=== PATIENT | female | born 1975 | race Caucasian/White ===

== ENCOUNTER 2017-08-09 08:51 | Emergency (ER) | payer OTHER, BC ==
[~2017-08-09] VITALS: Ht 162.6 cm; Wt 90.9 kg
[~2017-08-09 08:51] MED LIST: NO HOME MEDICATIONS
[2017-08-09] MEDS ORDERED: TYLENOL PM EX-1 EACH (08:58)
[2017-08-09] MEDS ORDERED: MUCINEX 60600 MG/TA1 (08:59)
[2017-08-09 09:47] LABS: PH-URINE 5.5 (5.0 - 8.0); URINE APPEARANCE HAZY; URINE BILIRUBIN NEGATIVE (NEGATIVE); URINE BLOOD NEGATIVE (NEGATIVE); URINE COLOR YELLOW; URINE GLUCOSE NEGATIVE (NEGATIVE); URINE KETONE NEGATIVE (NEGATIVE); URINE LEUKOCYTE ESTERASE TRACE (NEGATIVE); URINE NITRATE NEGATIVE (NEGATIVE); URINE PROTEIN(semi-quant) NEGATIVE (NEGATIVE); URINE UROBILINOGEN NORMAL (NORMAL)
[2017-08-09] MEDS ORDERED: PERCOCET 325 MG1 TA2 PO (13:02)
[2017-08-09] MEDS ORDERED: SKELAXIN 800MG800 MG PO (13:02)
[2017-08-09 13:08] VITALS: BP 134/89
== END 2017-08-09 13:11 | disposition home or self-care (01) ==
LOC: ED 08:51
PROVIDERS: Physician Assistant
DX: S33.5XXA Sprain of ligaments of lumbar spine, initial encounter (principal); X50.0XXA Overexertion from strenuous movement or load, initial encounter; Z88.2 Allergy status to sulfonamides
CPT/HCPCS: J1885; J2360

== ENCOUNTER 2017-12-18 19:17 | Emergency (ER) | payer BC ==
[~2017-12-18 19:17] MED LIST changes: +MUCINEX 60600 MG/TA1; +PERCOCET 325 MG1 TA2 PO; +SKELAXIN 800MG800 MG PO; +TYLENOL PM EX-1 EACH
[2017-12-18 20:24] VITALS: BP 140/80
== END 2017-12-18 20:24 | disposition home or self-care (01) ==
LOC: ED 19:17
DX: S93.402A Sprain of unspecified ligament of left ankle, initial encounter (principal); X50.1XXA Overexertion from prolonged static or awkward postures, initial encounter; Y92.481 Parking lot as the place of occurrence of the external cause

== ENCOUNTER → 2018-10-16 | Outpatient (CLI) | payer BC | LOC: MAMMO 10-08 09:15 | DX: Z12.31 Encounter for screening mammogram for malignant neoplasm of breast (principal) ==

== ENCOUNTER → 2020-04-16 | Outpatient (CLI) | payer OTHER | LOC: RAD 15:28 | DX: M79.672 Pain in left foot (principal) ==

== ENCOUNTER → 2020-05-21 | Outpatient (CLI) | payer OTHER | LOC: RAD 16:39 | DX: M76.52 Patellar tendinitis, left knee (principal) ==

== ENCOUNTER → 2020-12-15 | Outpatient (CLI) | payer OTHER, BC | LOC: MAMMO 09:02 | DX: Z12.31 Encounter for screening mammogram for malignant neoplasm of breast (principal) ==

== ENCOUNTER → 2021-10-25 | Outpatient (CLI) | payer BC | LOC: RAD 10:31 | DX: M25.561 Pain in right knee (principal) ==

== ENCOUNTER → 2021-11-02 | Outpatient (CLI) | payer BC | LOC: RAD 17:19 | DX: M17.11 Unilateral primary osteoarthritis, right knee (principal) ==

== ENCOUNTER → 2022-02-14 | Outpatient (CLI) | payer BC | LOC: RAD 07:30 | DX: M25.761 Osteophyte, right knee (principal) ==

== ENCOUNTER → 2023-02-27 | Outpatient (CLI) | payer BC | LOC: RAD 12:16 | DX: M16.0 Bilateral primary osteoarthritis of hip (principal) ==

== ENCOUNTER 2023-05-24 08:00 | Outpatient (RCR) | payer BC | END 2023-06-23 | disposition home or self-care (01) | LOC: PT | DX: M54.50 Low back pain, unspecified (principal) ==

== ENCOUNTER → 2024-06-03 | Outpatient (CLI) | payer OTHER | LOC: RAD 14:03 | DX: R07.9 Chest pain, unspecified (principal) ==